=== PATIENT | female | born 1980 | race Caucasian/White ===

== ENCOUNTER 2024-05-21 12:31 | Emergency (ER) | payer SELFPAY ==
[2024-05-21 12:38] VITALS: BP 132/86; PULSE 81; RESP 16; TEMP 37; O2SAT 99
--- NOTE | 2024-05-21 12:55 | ED.BACK ---
HPI - Back Pain/Injury General Chief Complaint: Back Pain/Injury Stated Complaint: Back Pain Time Seen by Provider: 05/21/24 12:50 Source: patient Mode of arrival: ambulatory Limitations: no limitations History of Present Illness HPI Narrative: Krysta is a 43-year-old female patient presenting to the clinic today with complaints of low back pain. She reports that she injured her back a few days ago when bending forward in the closet and that pain improved. States she was doing laundry today and bending forward and this exacerbated her low back pain. Denies any known acute injury. Denies any saddle anesthesia or loss of bowel or bladder. Related Data Allergies Allergy/AdvReac Type Severity Reaction Status Date / Time No Known Allergies Allergy Verified 05/21/24 12:46 Review of Systems Review of Systems: Pertinent positives per HPI. Patient denies any fever, chills, rash, headache, visual changes, dizziness, cough, runny nose, sore throat, shortness of breath, chest pain, palpitations, nausea, vomiting, diarrhea, constipation, abdominal pain, or any urinary issues. PMFSH Comments At the time of my signature, I reviewed and agree with the nursing past medical, surgical, social, and family history. There is no relevant family history pertinent to the patient complaint. Exam Narrative: General: Well-developed, well nourished, in no apparent distress Head: Normocephalic, atraumatic. Cardio: Regular rate and rhythm, s1 and s2 normal, no murmur appreciated. Resp: Clear to auscultation bilaterally, no rhonchi, rales, wheezing or rubs. Musculoskeletal: No deformity, tender to palpation over the mid lower back, pain with flexion and extension of the low back, muscle strength strong and equal in BLE. SLT positive bilaterally, patellar reflexes 2/4 bilaterally, negative foot drop, cautious slow gait and station Course Course Emergency Course: Portions of this record may have been created with voice recognition software. Level of Care: Express Care Visit Vital Signs Vital signs: Vital Signs Temperature 37.0 C 05/21/24 12:38 Pulse Rate 81 05/21/24 12:38 Respiratory Rate 16 05/21/24 12:38 Blood Pressure 132/86 05/21/24 12:38 Pulse Oximetry 99 05/21/24 12:38 Oxygen Delivery Room Air 05/21/24 12:38 Temperature 37.0 C 05/21/24 12:38 Pulse Rate 81 05/21/24 12:38 Respiratory Rate 16 05/21/24 12:38 Blood Pressure 132/86 05/21/24 12:38 Pulse Oximetry 99 05/21/24 12:38 Oxygen Delivery Room Air 05/21/24 12:38 Vital signs reviewed MDM - Back Pain/Injury MDM Narrative Medical decision making narrative: At the time of visit patient is resting comfortably on the exam table. Patient appears to be nontoxic. Plan: I suspect patient has a low back strain. Dexamethasone 10 mg IM given in the clinic today. Will send in prescription for Medrol Dosepak and baclofen. Supportive measures were discussed with the patient and they voiced understanding discharge instructions and agrees to treatment plan. Return precautions reviewed Differential Diagnosis Differential diagnosis: Likely lumbar radiculopathy, sciatica, strain of lumbar region, renal colic, pyelonephritis, thoracic back pain and discitis Discharge Plan Discharge Clinical Impression: Strain of lumbar region Qualifiers: Encounter type: initial encounter Qualified Code(s): S39.012A - Strain of muscle, fascia and tendon of lower back, initial encounter Patient Disposition: Home, Self-Care Condition: Stable Instructions: Antibiotic Form, Low Back Strain (ED), Lower Back Exercises (ED) Additional Instructions: Dexamethasone 10 mg IM given in the clinic today Take any prescription medication only as prescribed-Medrol Dosepak and baclofen Be mindful of sedation precautions given to you if taking a muscle relaxer. May use heat or ice to the affected area Consider massage or chiropractor adjustment if this was
[2024-05-21] MEDS: dexAMETHasone SOD PHOS INJ 10 MG/ML 1 ML VIAL IM (13:09)
== END 2024-05-21 13:20 | disposition home or self-care (01) ==
PROVIDERS: Emergency Provider Nurse Practitioner Family
DX: S39.012A Strain of muscle, fascia and tendon of lower back, initial encounter (principal); X50.9XXA Other and unspecified overexertion or strenuous movements or postures, initial encounter
CPT/HCPCS: 96372; 99203; G0463; J1100